=== PATIENT | female | born 1945 | race Caucasian/White ===

== ENCOUNTER 2016-05-27 14:12 | Inpatient (IN) | payer OTHER ==
[~2016-05-27] VITALS: Ht 160 cm; Wt 93.4 kg
[~2016-05-27 14:12] MED LIST: ALBUTEROL SULF8.5 GM IH; ALDACTONE25 MG PO; ALPRAZOLAM0.25 M2 PO; ALPRAZOLAM0.5 MG PO; ASPIR 8181 M1 PO; ASPIRIN81 M2 PO; ATORVASTATIN CA20 MG PO; Aldactone PO; CARDIZEM CD180 MG PO; CYCLOBENZAPRINE10 M1 PO; Colace PO; DAILY VITE1 EAC1 PO; DESYREL100 MG PO; DILTIAZEM 24HR180 MG PO; DOXYCYCLINE HY100 MG PO; DURAGESIC100 MCG TD; Dulcolax PO; Duragesic TD; EFFEXOR XR150 MG PO; EFFEXOR75 MG PO; Effexor PO; GABAPENTIN600 MG PO; GEMFIBROZIL600 MG PO; HUMALOG100 UNIT/2 SC; HYCODAN SYRUP480 ML PO; INDERAL80 MG PO; IRON325 M1 PO; IRON325 MG PO; LANTUS 10100 UNITS/ SC; LANTUS 3 M100 UNITS/ SC; LANTUS 3 M100 UNITS1 SC; LANTUS100 UNIT/1 IJ; LEVAQUIN500 MG PO; LEVETIRACETAM500 MG PO; LEVOFLOXACIN750 MG PO; LO-DOSE ASPIRIN81 M2 PO; LOPID600 MG PO; LOTRISONE15 GM TP; Lopid PO; MEDROL DOSEPAK4 MG PO; MELATONIN10 M1 PO; MIRALAX17 GM PO; NEURONTIN600 MG PO; NOVOLOG PE100 UNITS/ SC; NOVOLOG100 UNIT/1 SC; Neurontin PO; OXYCODONE HCL5 MG PO; PERCOCET 5/31 TABLET PO; PREDNISONE10 MG PO; PREDNISONE20 MG PO; PRILOSEC20 MG PO; PROAIR HFA8.5 GM IH; PROTONIX40 MG PO; PROVENTIL,2.5 MG/3 M IH; PriLOSEC PO; ROBITUSSIN AC,T10 ML PO; SENNA PLUS TAB1 EACH PO; SPIRIVA1 INHALATI IH; SPIRONOLACTONE25 MG PO; TESSALON PERLE100 MG PO; THERAGRAN1 TABLET PO; TRAMADOL HCL50 MG PO; TYLENOL EXTRA500 MG PO; Tylenol Regular Stre PO; VENLAFAXINE HC150 M1 PO; VITAMIN D1000 UNIT PO; VITAMIN D31000 UNI2 PO; WELLBUTRIN SR200 MG PO; XANAX0.25 MG PO; XANAX0.5 MG PO; XARELTO10 MG PO; [UNRECOGNIZED DRUG - OTHER] TP
[2016-05-27] MEDS ORDERED: HEPARIN SO5000 UNITS SC (16:02)
[2016-05-27] MEDS ORDERED: DEXTROSE 50%50 ML IV (16:03)
[2016-05-27] MEDS ORDERED: NOVOLOG PE100 UNITS/ SC (16:03)
[2016-05-27] MEDS ORDERED: GLUCAGEN1 MG IM (16:04)
[2016-05-27] MEDS ORDERED: ZOFRAN4 MG PO (16:05)
[2016-05-27] MEDS ORDERED: OXYCODONE HCL5 MG PO (16:08)
[2016-05-27 16:19] LABS: POINT-OF-CARE METER ID UU13113720
[2016-05-27 16:45] LABS: HEMATOCRIT 38.6 % (36.0-46.0); MCH 30.3 PG (29.0-34.0); MCHC 32.4 G/DL (30.0-36.0); MCV 93.7 FL (83-99); MEAN PLAT.VOLUME 10.1 uM^3 (9.5-12.4); PLATELET COUNT 189 K/uL (156-360); RBC DIS.WIDTH-SD 50.8 % (39-53); RED BLOOD COUNT 4.12 M/uL (3.80-5.20); WHITE BLOOD COUNT 6.6 K/uL (4.1-10.2)
[2016-05-27 17:02] LABS: ALKALINE PHOSPHATASE 127 IU/L (3-129); ANION GAP 8 MEQ/L (2-14); CHLORIDE 101 MEQ/L (99-109); GFR ESTIMATE (CALCULATED) 58 mL/min/; GLUCOSE 203 mg/dL (70-99); POTASSIUM 4.1 MEQ/L (3.7-5.4); SAMPLE HEMOLYSIS CHECK 0; SAMPLE ICTERIC CHECK 0; SAMPLE LIPEMIA CHECK 0; SODIUM 139 MEQ/L (136-147); TOTAL BILIRUBIN 0.6 MG/DL (0.0-1.0); UREA NITROGEN (BUN) 13 mg/dL (9-23)
[2016-05-27 21:45] LABS: POINT-OF-CARE METER ID UU13113720
[2016-05-27 23:25] VITALS: BP 162/70
[2016-05-28 06:06] VITALS: BP 132/62
[2016-05-28 06:46] LABS: POINT-OF-CARE METER ID UU14174215; POINT-OF-CARE USER ID ENVGAF
[2016-05-28 11:17] LABS: POINT-OF-CARE METER ID UU14174215; POINT-OF-CARE USER ID ENVGAF
[2016-05-28 14:48] VITALS: BP 127/62
[2016-05-28 16:43] LABS: POINT-OF-CARE METER ID UU14174215
[2016-05-28 20:57] LABS: POINT-OF-CARE METER ID UU14174215
[2016-05-29 05:49] VITALS: BP 125/60
[2016-05-29 07:14] LABS: POINT-OF-CARE METER ID UU14174215; POINT-OF-CARE USER ID ENVGAF
[2016-05-29 11:33] LABS: POINT-OF-CARE METER ID UU14174215; POINT-OF-CARE USER ID ENVGAF
[2016-05-29] MEDS ORDERED: INDERAL LA80 MG PO (14:54)
[2016-05-29 15:56] VITALS: BP 137/65
[2016-05-29 16:36] LABS: POINT-OF-CARE METER ID UU13113720
[2016-05-29 21:34] LABS: POINT-OF-CARE METER ID UU13113720; POINT-OF-CARE USER ID 610211320
[2016-05-30 05:40] VITALS: BP 134/73
[2016-05-30 07:21] LABS: POINT-OF-CARE METER ID UU14174215; POINT-OF-CARE USER ID AHSSSJB31
[2016-05-30 12:18] LABS: POINT-OF-CARE METER ID UU14174215; POINT-OF-CARE USER ID AHSSSJB31
[2016-05-30 15:28] VITALS: BP 124/60
[2016-05-30 16:17] LABS: POINT-OF-CARE METER ID UU13113720
[2016-05-30 21:14] LABS: POINT-OF-CARE METER ID UU13113720
[2016-05-31 06:08] VITALS: BP 155/75
[2016-05-31 07:20] LABS: POINT-OF-CARE METER ID UU14174215; POINT-OF-CARE USER ID AHSSSJB31
[2016-05-31 12:15] LABS: POINT-OF-CARE METER ID UU14174215
[2016-05-31 15:47] VITALS: BP 126/70
[2016-05-31 16:13] LABS: POINT-OF-CARE METER ID UU14174215
[2016-05-31 21:48] LABS: POINT-OF-CARE METER ID UU13113720
[2016-06-01 05:00] VITALS: BP 122/60
[2016-06-01 07:21] LABS: POINT-OF-CARE METER ID UU13113720; POINT-OF-CARE USER ID AHSSSJB31
[2016-06-01 11:57] LABS: POINT-OF-CARE METER ID UU13113720; POINT-OF-CARE USER ID AHSSSJB31
[2016-06-01 15:31] LABS: POINT-OF-CARE METER ID UU14174215
[2016-06-01 15:32] VITALS: BP 121/64
[2016-06-01 21:24] LABS: POINT-OF-CARE METER ID UU14174215
[2016-06-02 05:39] VITALS: BP 126/59
[2016-06-02 07:30] LABS: POINT-OF-CARE METER ID UU14174215; POINT-OF-CARE USER ID AHSSSJB31
[2016-06-02 11:57] LABS: POINT-OF-CARE METER ID UU13113720
[2016-06-02 15:18] VITALS: BP 132/60
[2016-06-02 16:20] LABS: POINT-OF-CARE METER ID UU13113720
[2016-06-02 21:14] LABS: POINT-OF-CARE METER ID UU13113720
[2016-06-03 05:41] VITALS: BP 126/59
[2016-06-03 07:25] LABS: POINT-OF-CARE METER ID UU13113720
[2016-06-03 11:47] LABS: POINT-OF-CARE METER ID UU13113720; POINT-OF-CARE USER ID AHSSSJB31
[2016-06-03 15:48] VITALS: BP 130/60
[2016-06-03 16:08] LABS: POINT-OF-CARE METER ID UU13113720
[2016-06-03 21:07] LABS: POINT-OF-CARE METER ID UU13113720
[2016-06-04 04:40] VITALS: BP 167/77
[2016-06-04 05:40] LABS: HEMATOCRIT 38.8 % (36.0-46.0); MCH 29.4 PG (29.0-34.0); MCHC 30.9 G/DL (30.0-36.0); MCV 95.1 FL (83-99); RBC DIS.WIDTH-CV 15.6 % (11.8-14.6); RBC DIS.WIDTH-SD 53.5 % (39-53); RED BLOOD COUNT 4.08 M/uL (3.80-5.20); WHITE BLOOD COUNT 7.8 K/uL (4.1-10.2)
[2016-06-04 06:04] LABS: ANION GAP 8 MEQ/L (2-14); CHLORIDE 99 MEQ/L (99-109); GFR ESTIMATE (CALCULATED) 58 mL/min/; GLUCOSE 204 mg/dL (70-99); POTASSIUM 4.9 MEQ/L (3.7-5.4); SAMPLE HEMOLYSIS CHECK 1; SAMPLE ICTERIC CHECK 0; SAMPLE LIPEMIA CHECK 0; SODIUM 139 MEQ/L (136-147); UREA NITROGEN (BUN) 19 mg/dL (9-23)
[2016-06-04 06:46] LABS: MEAN PLAT.VOLUME 10.1 uM^3 (9.5-12.4)
[2016-06-04 06:48] LABS: PLATELET COUNT 258 K/uL (156-360)
[2016-06-04 07:24] LABS: POINT-OF-CARE METER ID UU13113720; POINT-OF-CARE USER ID AHSSSJB31
[2016-06-04 11:52] LABS: POINT-OF-CARE METER ID UU13113720; POINT-OF-CARE USER ID AHSSSJB31
[2016-06-04 16:06] VITALS: BP 133/61
[2016-06-04 16:08] LABS: POINT-OF-CARE METER ID UU13113720
[2016-06-04 22:12] LABS: POINT-OF-CARE METER ID UU14174215
[2016-06-05 05:20] VITALS: BP 164/72
[2016-06-05 07:43] LABS: POINT-OF-CARE METER ID UU13113720; POINT-OF-CARE USER ID AHSSSJB31
[2016-06-05 11:55] LABS: POINT-OF-CARE METER ID UU13113720; POINT-OF-CARE USER ID AHSSSJB31
[2016-06-05 16:03] VITALS: BP 118/59
[2016-06-05 16:09] LABS: POINT-OF-CARE METER ID UU13113720
[2016-06-05 21:17] LABS: POINT-OF-CARE METER ID UU14174215
[2016-06-06 05:40] VITALS: BP 130/66
[2016-06-06 07:38] LABS: POINT-OF-CARE METER ID UU13113720; POINT-OF-CARE USER ID AHSSSJB31
[2016-06-06 11:50] LABS: POINT-OF-CARE METER ID UU13113720; POINT-OF-CARE USER ID AHSSSJB31
[2016-06-06 15:25] VITALS: BP 135/60
[2016-06-06 16:18] LABS: POINT-OF-CARE METER ID UU14174215
[2016-06-06 21:19] LABS: POINT-OF-CARE METER ID UU13113720
[2016-06-07 05:54] VITALS: BP 130/67
[2016-06-07 07:35] LABS: POINT-OF-CARE METER ID UU13113720
[2016-06-07 11:22] LABS: POINT-OF-CARE METER ID UU14174215
[2016-06-07 15:47] VITALS: BP 125/56
[2016-06-07 16:43] LABS: POINT-OF-CARE METER ID UU13113720
[2016-06-07 21:29] LABS: POINT-OF-CARE METER ID UU13113720
[2016-06-08 05:43] VITALS: BP 146/77
[2016-06-08 07:54] LABS: POINT-OF-CARE METER ID UU13113720
[2016-06-08 12:05] LABS: POINT-OF-CARE METER ID UU13113720
[2016-06-08 16:11] LABS: POINT-OF-CARE METER ID UU13113720
[2016-06-08 21:16] LABS: POINT-OF-CARE METER ID UU13113720
[2016-06-09 05:31] VITALS: BP 130/62
[2016-06-09 07:51] LABS: POINT-OF-CARE METER ID UU13113720; POINT-OF-CARE USER ID AHSSSJB31
[2016-06-09 11:37] LABS: POINT-OF-CARE METER ID UU13113720; POINT-OF-CARE USER ID AHSSSJB31
[2016-06-09 15:50] VITALS: BP 108/55
[2016-06-09 16:49] LABS: POINT-OF-CARE METER ID UU13113720
[2016-06-09 21:41] LABS: POINT-OF-CARE METER ID UU13113720
[2016-06-10 05:49] LABS: HEMATOCRIT 41.3 % (36.0-46.0); MCH 30.2 PG (29.0-34.0); MCHC 31.7 G/DL (30.0-36.0); MCV 95.2 FL (83-99); MEAN PLAT.VOLUME 10.6 uM^3 (9.5-12.4); PLATELET COUNT 326 K/uL (156-360); RBC DIS.WIDTH-CV 15.7 % (11.8-14.6); RBC DIS.WIDTH-SD 54.7 % (39-53); RED BLOOD COUNT 4.34 M/uL (3.80-5.20); WHITE BLOOD COUNT 9.1 K/uL (4.1-10.2)
[2016-06-10 06:05] VITALS: BP 95/50
[2016-06-10 06:19] LABS: ALKALINE PHOSPHATASE 179 IU/L (3-129); ANION GAP 11 MEQ/L (2-14); CHLORIDE 100 MEQ/L (99-109); GFR ESTIMATE (CALCULATED) 58 mL/min/; GLUCOSE 196 mg/dL (70-99); POTASSIUM 4.7 MEQ/L (3.7-5.4); SAMPLE HEMOLYSIS CHECK 0; SAMPLE ICTERIC CHECK 0; SAMPLE LIPEMIA CHECK 0; SODIUM 138 MEQ/L (136-147); TOTAL BILIRUBIN 0.6 MG/DL (0.0-1.0); UREA NITROGEN (BUN) 20 mg/dL (9-23)
[2016-06-10 07:10] LABS: POINT-OF-CARE METER ID UU13113712; POINT-OF-CARE USER ID AHSSSJB31
[2016-06-10 08:13] VITALS: BP 166/76
[2016-06-10 11:29] LABS: POINT-OF-CARE METER ID UU13113712; POINT-OF-CARE USER ID AHSSSJB31
[2016-06-10 14:11] LABS: INFLUENZA A VIRAL ANTIGEN NEGATIVE; INFLUENZA B VIRAL ANTIGEN NEGATIVE
[2016-06-10 16:01] VITALS: BP 133/61
[2016-06-10 16:21] LABS: POINT-OF-CARE METER ID UU13113712
[2016-06-10 21:23] LABS: POINT-OF-CARE METER ID UU13113720
[2016-06-11 04:46] VITALS: BP 135/62
[2016-06-11 06:54] LABS: POINT-OF-CARE METER ID UU13113720
[2016-06-11 11:56] LABS: POINT-OF-CARE METER ID UU13113720
[2016-06-11 15:16] VITALS: BP 171/86
[2016-06-11 16:19] LABS: POINT-OF-CARE METER ID UU13113712
[2016-06-11 20:58] LABS: POINT-OF-CARE METER ID UU13113720
[2016-06-12 04:59] LABS: MCH 29.9 PG (29.0-34.0); MCHC 31.5 G/DL (30.0-36.0); MCV 94.9 FL (83-99); MEAN PLAT.VOLUME 9.8 uM^3 (9.5-12.4); PLATELET COUNT 282 K/uL (156-360); RBC DIS.WIDTH-CV 15.5 % (11.8-14.6); RBC DIS.WIDTH-SD 51.2 % (39-53); RED BLOOD COUNT 4.32 M/uL (3.80-5.20); WHITE BLOOD COUNT 8.8 K/uL (4.1-10.2)
[2016-06-12 05:04] LABS: CHLORIDE 100 mEq/L (99-109); POTASSIUM 4.5 mEq/L (3.7-5.4); SODIUM 138 mEq/L (136-147)
[2016-06-12 05:07] LABS: GLUCOSE 232 mg/dL (70-99)
[2016-06-12 05:08] LABS: ANION GAP 9 MEQ/L (2-14)
[2016-06-12 05:09] LABS: TOTAL BILIRUBIN 0.5 mg/dL (0.0-1.0)
[2016-06-12 05:10] LABS: ALKALINE PHOSPHATASE 193 IU/L (3-129); GFR ESTIMATE (CALCULATED) 52 mL/min/
[2016-06-12 05:11] LABS: UREA NITROGEN (BUN) 20 mg/dL (9-23)
[2016-06-12 05:58] VITALS: BP 125/58
[2016-06-12 07:20] LABS: POINT-OF-CARE METER ID UU13113712; POINT-OF-CARE USER ID ENVGAF
[2016-06-12 11:30] LABS: POINT-OF-CARE METER ID UU13113720
[2016-06-12 15:30] VITALS: BP 118/63
[2016-06-12 15:31] VITALS: BP 131/62
[2016-06-12 16:24] LABS: POINT-OF-CARE METER ID UU13113712
[2016-06-12 21:02] LABS: POINT-OF-CARE METER ID UU13113720
[2016-06-13 04:37] VITALS: BP 106/59
[2016-06-13 07:30] LABS: POINT-OF-CARE METER ID UU13113712
[2016-06-13 12:00] LABS: POINT-OF-CARE METER ID UU13113720
[2016-06-13 15:49] VITALS: BP 139/63
[2016-06-13 16:34] LABS: POINT-OF-CARE METER ID UU13113720
[2016-06-13 21:12] LABS: POINT-OF-CARE METER ID UU13113720; POINT-OF-CARE USER ID 610211320
[2016-06-14 05:46] VITALS: BP 132/68
[2016-06-14 07:28] LABS: POINT-OF-CARE METER ID UU13113720
[2016-06-14 12:03] LABS: POINT-OF-CARE METER ID UU13113720
[2016-06-14] MEDS ORDERED: NOVOLOG PE100 UNITS/ SC (14:26)
[2016-06-14] MEDS ORDERED: PROAIR HFA8.5 GM IH (14:26)
[2016-06-14] MEDS ORDERED: DOCUSATE SODIU100 MG PO (14:26)
[2016-06-14] MEDS ORDERED: MIRALAX17 GM PO (14:26)
[2016-06-14] MEDS ORDERED: ACETAMINOPHEN-1 EAC1 PO (14:26)
[2016-06-14] MEDS ORDERED: PROTONIX40 MG PO (14:26)
[2016-06-14] MEDS ORDERED: SPIRIVA1 INHALATI IH (14:26)
[2016-06-14] MEDS ORDERED: LOPRESSOR50 MG PO (14:26)
[2016-06-14] MEDS ORDERED: VITAMIN D31000 UNI2 PO (14:26)
[2016-06-14] MEDS ORDERED: BENZONATATE100 MG PO (14:26)
[2016-06-14] MEDS ORDERED: ADVAIR HFA120 INHAL1 IH (14:26)
[2016-06-14] MEDS ORDERED: DUONEB 2.5-0.5 M3 ML AEROSOL (14:26)
[2016-06-14] MEDS ORDERED: DILTIAZEM 24HR180 MG PO (14:26)
[2016-06-14] MEDS ORDERED: SENNA PLUS TAB1 EACH PO (14:26)
[2016-06-14] MEDS ORDERED: LATANOPROST2.5 ML BOTH EYES (14:26)
[2016-06-14] MEDS ORDERED: SPIRONOLACTONE25 MG PO (14:26)
[2016-06-14] MEDS ORDERED: LANTUS 10100 UNITS/ SC (14:26)
[2016-06-14 15:00] VITALS: BP 148/65
== END 2016-06-14 18:07 | disposition home health service (06) | DRG 945 ==
LOC: 3WEST 14:12
PROVIDERS: Physical Medicine & Rehabilitation Pain Medicine; Psychiatry & Neurology Neurology
PROC: F07M0ZZ Range of Motion and Joint Mobility Treatment of Musculoskeletal System - Whole Body (ICD-10-PCS; principal; 2016-05-27)
PROC: [UNRECOGNIZED PROCEDURE] (2016-06-06)
DX: R53.1 Weakness (principal); J98.11 Atelectasis; R04.2 Hemoptysis; S52.532D Colles' fracture of left radius, subsequent encounter for closed fracture with routine healing; G62.9 Polyneuropathy, unspecified; J44.9 Chronic obstructive pulmonary disease, unspecified; E11.65 Type 2 diabetes mellitus with hyperglycemia; G72.89 Other specified myopathies; I10 Essential (primary) hypertension; E78.5 Hyperlipidemia, unspecified; E66.01 Morbid (severe) obesity due to excess calories; G89.29 Other chronic pain; G47.00 Insomnia, unspecified; Z79.4 Long term (current) use of insulin; F41.9 Anxiety disorder, unspecified; F32.9 Major depressive disorder, single episode, unspecified; H40.9 Unspecified glaucoma; Z91.14 Patient's other noncompliance with medication regimen; Z90.49 Acquired absence of other specified parts of digestive tract; Z98.1 Arthrodesis status; Z87.891 Personal history of nicotine dependence
CPT/HCPCS: 70450; 71010; 71250; 73110; 80048; 80053; 82948; 85025; 85027; 87502; 94640; 94640 76; 97110 GO; 97530 GP; 99202; 99281; 99285; C1894; J1644; J1815; J3010; J7030; J7512

== ENCOUNTER 2016-09-27 02:59 | Emergency (ER) | payer OTHER ==
[~2016-09-27] VITALS: Ht 160 cm; Wt 94.2 kg
[~2016-09-27 02:59] MED LIST changes: +ACETAMINOPHEN-1 EAC1 PO; +ADVAIR HFA120 INHAL1 IH; +BENZONATATE100 MG PO; +DEXTROSE 50%50 ML IV; +DOCUSATE SODIU100 MG PO; +DUONEB 2.5-0.5 M3 ML AEROSOL; +GLUCAGEN1 MG IM; +HEPARIN SO5000 UNITS SC; +INDERAL LA80 MG PO; +LATANOPROST2.5 ML BOTH EYES; +LOPRESSOR50 MG PO; +ZOFRAN4 MG PO
[2016-09-27 04:26] LABS: HEMATOCRIT 44.3 % (36.0-46.0); MCH 28.8 PG (29.0-34.0); MCHC 31.6 G/DL (30.0-36.0); MCV 91.2 FL (83-99); PLATELET COUNT 232 K/uL (156-360); RBC DIS.WIDTH-CV 14.1 % (11.8-14.6); RBC DIS.WIDTH-SD 47.6 % (39-53); RED BLOOD COUNT 4.86 M/uL (3.80-5.20); WHITE BLOOD COUNT 8.5 K/uL (4.1-10.2)
[2016-09-27] MEDS ORDERED: VALIUM2 MG PO (04:32)
[2016-09-27 04:35] LABS: CHLORIDE 105 mEq/L (99-109); POTASSIUM 4.5 mEq/L (3.7-5.4); SODIUM 141 mEq/L (136-147)
[2016-09-27 04:37] LABS: GLUCOSE 156 mg/dL (70-99)
[2016-09-27 04:38] LABS: ANION GAP 11 MEQ/L (2-14)
[2016-09-27 04:41] LABS: GFR ESTIMATE (CALCULATED) 52 mL/min/
[2016-09-27 04:42] LABS: UREA NITROGEN (BUN) 19 mg/dL (9-23)
[2016-09-27 04:53] VITALS: BP 135/53
== END 2016-09-27 04:55 | disposition home or self-care (01) ==
LOC: EME 02:59
PROVIDERS: Emergency Medicine
DX: M62.830 Muscle spasm of back (principal); M51.36 Other intervertebral disc degeneration, lumbar region; G89.29 Other chronic pain; I10 Essential (primary) hypertension; E11.9 Type 2 diabetes mellitus without complications; J44.9 Chronic obstructive pulmonary disease, unspecified; E78.5 Hyperlipidemia, unspecified; Z98.890 Other specified postprocedural states; Z79.4 Long term (current) use of insulin; Z87.891 Personal history of nicotine dependence; Z98.1 Arthrodesis status
CPT/HCPCS: 72131; 74176; 80048; 81003; 85027; 99281; 99285; J2270; J2405; J3360

== ENCOUNTER 2017-12-13 12:57 | Observation (INO) | payer OTHER ==
[~2017-12-13] VITALS: Ht 160 cm; Wt 90.0 kg
[~2017-12-13 12:57] MED LIST changes: +VALIUM2 MG PO
[2017-12-13 14:08] LABS: CHLORIDE 103 mEq/L (99-109); SODIUM 138 mEq/L (136-147)
[2017-12-13 14:10] LABS: GLUCOSE 124 mg/dL (70-99)
[2017-12-13 14:13] LABS: CREATININE 1.6 mg/dL (0.6-1.3); GFR ESTIMATE (CALCULATED) 34 mL/min/
[2017-12-13 14:14] LABS: UREA NITROGEN (BUN) 24 mg/dL (9-23)
[2017-12-13 14:20] LABS: TROP-I INTERPRETATION NEGATIVE; TROPONIN-I < 0.01 ng/mL (0.0-0.30)
[2017-12-13 14:27] LABS: HEMATOCRIT 38.2 % (36.0-46.0); HEMOGLOBIN 12.8 G/DL (11.9-15.5); MCH 32.3 PG (29.0-34.0); MCHC 33.5 G/DL (30.0-36.0); MCV 96.5 FL (83-99); PLATELET COUNT 216 K/uL (156-360); RBC DIS.WIDTH-CV 13.5 % (11.8-14.6); RBC DIS.WIDTH-SD 48.4 % (39-53); RED BLOOD COUNT 3.96 M/uL (3.80-5.20); WHITE BLOOD COUNT 10.1 K/uL (4.1-10.2)
[2017-12-13 14:29] LABS: POTASSIUM 6.3 mEq/L (3.7-5.4)
[2017-12-13 16:46] LABS: CHLORIDE 104 mEq/L (99-109); POTASSIUM 5.1 mEq/L (3.7-5.4); SODIUM 140 mEq/L (136-147)
[2017-12-13 16:47] LABS: GLUCOSE 96 mg/dL (70-99)
[2017-12-13 16:51] LABS: CREATININE 1.5 mg/dL (0.6-1.3); GFR ESTIMATE (CALCULATED) 36 mL/min/
[2017-12-13 16:52] LABS: UREA NITROGEN (BUN) 24 mg/dL (9-23)
[2017-12-13] MEDS ORDERED: ATIVAN0.5 MG PO ×2 (18:19→22:33)
[2017-12-13] MEDS ORDERED: PANTOPRAZOLE SO20 MG PO (18:20)
[2017-12-13] MEDS ORDERED: VENLAFAXINE HC150 M1 PO ×2 (18:20→22:17)
[2017-12-13] MEDS ORDERED: MYSOLINE50 MG PO (18:21)
[2017-12-13] MEDS ORDERED: LO-DOSE ASPIRIN81 M2 PO (18:22)
[2017-12-13 19:52] LABS: BASOPHIL (%) 0.4 % (0-1); EOSINOPHIL (%) 1.5 % (0-5); EOSINOPHIL COUNT 0.1 K/uL (0-0.3); HEMATOCRIT 36.8 % (36.0-46.0); HEMOGLOBIN 11.7 G/DL (11.9-15.5); IMMATURE GRANULOCYTE (%) 0.3 % (0.0-0.7); LYMPHOCYTE (%) 32.9 % (15-42); LYMPHOCYTE COUNT 3.1 K/uL (1.0-2.8); MCH 31.3 PG (29.0-34.0); MCHC 31.8 G/DL (30.0-36.0); MCV 98.4 FL (83-99); MONOCYTE (%) 8.8 % (3-12); MONOCYTE COUNT 0.8 K/uL (0-0.8); NEUTROPHIL (%) 56.1 % (45-76); NEUTROPHIL COUNT 5.3 K/uL (1.8-6.4); NRBC (%) 0.2 /100 WBC (0-0); PLATELET COUNT 185 K/uL (156-360); RBC DIS.WIDTH-CV 13.5 % (11.8-14.6); RED BLOOD COUNT 3.74 M/uL (3.80-5.20); WHITE BLOOD COUNT 9.5 K/uL (4.1-10.2)
[2017-12-13 20:15] VITALS: BP 135/60
[2017-12-13] MEDS ORDERED: FEOSOL325 MG PO (22:18)
[2017-12-13] MEDS ORDERED: ADULT LOW DOSE81 M1 PO (22:19)
[2017-12-13] MEDS ORDERED: MELATONIN10 M1 PO (22:20)
[2017-12-13] MEDS ORDERED: LOPRESSOR50 MG PO (22:22)
[2017-12-13] MEDS ORDERED: MS CONTIN,ORAMO30 MG PO (22:28)
[2017-12-13] MEDS ORDERED: LORAZEPAM0.5 MG PO (22:31)
[2017-12-13 23:33] LABS: APPEARANCE CLEAR ((CLEAR)); BILIRUBIN NEGATIVE; BLOOD NEGATIVE; COLOR YELLOW ((YELLOW)); GLUCOSE (STRIP) NEGATIVE; KETONES NEGATIVE; LEUKOCYTES NEGATIVE; NITRITE NEGATIVE; PROTEIN (STRIP) NEGATIVE; SPECIFIC GRAVITY 1.013 (1.000-1.030); UCUL ADDED? NO
[2017-12-13 23:52] VITALS: BP 126/58
[2017-12-14] MEDS ORDERED: XANAX0.25 MG PO (01:14)
[2017-12-14] MEDS ORDERED: ONCE DAILY1 EACH PO (01:15)
[2017-12-14] MEDS ORDERED: OXAYDO5 MG PO (01:17)
[2017-12-14] MEDS ORDERED: TESSALON PERLE100 MG PO (01:19)
[2017-12-14] MEDS ORDERED: ALDACTONE25 MG PO (01:20)
[2017-12-14] MEDS ORDERED: PROTONIX40 MG PO (01:21)
[2017-12-14] MEDS ORDERED: LANTUS 10100 UNITS/ SC ×2 (01:22→01:23)
[2017-12-14] MEDS ORDERED: MYSOLINE50 MG PO (01:22)
[2017-12-14] MEDS ORDERED: NOVOLOG PE100 UNITS/ SC (01:25)
[2017-12-14 03:56] VITALS: BP 149/67
[2017-12-14 05:43] LABS: CHLORIDE 106 MEQ/L (99-109); CREATININE 1.1 MG/DL (0.6-1.3); GFR ESTIMATE (CALCULATED) 52 mL/min/; GLUCOSE 107 mg/dL (70-99); SODIUM 141 MEQ/L (136-147); UREA NITROGEN (BUN) 21 mg/dL (9-23)
[2017-12-14 08:19] VITALS: BP 142/63
[2017-12-14 09:35] LABS: ALKALINE PHOSPHATASE 101 IU/L (3-129); ALT (GPT) 20 IU/L (3-49); AST (GOT) 26 IU/L (2-34); DIRECT BILIRUBIN 0.1 mg/dL (0.0-0.3); TOTAL BILIRUBIN 0.6 MG/DL (0.0-1.0); TOTAL PROTEIN 5.7 G/DL (6.4-8.3)
[2017-12-14 12:13] VITALS: BP 143/65
[2017-12-14 14:58] VITALS: BP 187/81
[2017-12-14 19:45] VITALS: BP 143/67
[2017-12-15] VITALS: BP 145/64
[2017-12-15 04:05] VITALS: BP 174/79
[2017-12-15 08:07] VITALS: BP 189/82
== END 2017-12-15 11:25 | disposition home or self-care (01) ==
LOC: EME 12:57 → EDOF 18:36 → 4SOUTH 18:36 → EDOF 18:36 → ENRESERV 18:38 → 4SOUTH 19:54
PROVIDERS: Emergency Medicine; Hospitalist
PROC: B246ZZZ Ultrasonography of Right and Left Heart (ICD-10-PCS; principal; 2017-12-14)
DX: G93.41 Metabolic encephalopathy (principal); I95.1 Orthostatic hypotension; N17.9 Acute kidney failure, unspecified; I35.0 Nonrheumatic aortic (valve) stenosis; F11.20 Opioid dependence, uncomplicated; G89.29 Other chronic pain; I10 Essential (primary) hypertension; E78.5 Hyperlipidemia, unspecified; E04.1 Nontoxic single thyroid nodule; E66.9 Obesity, unspecified; Z68.35 Body mass index [BMI] 35.0-35.9, adult; E11.42 Type 2 diabetes mellitus with diabetic polyneuropathy; J44.9 Chronic obstructive pulmonary disease, unspecified; R09.02 Hypoxemia; E87.5 Hyperkalemia; Z79.4 Long term (current) use of insulin; Z79.82 Long term (current) use of aspirin; R26.89 Other abnormalities of gait and mobility; Z90.49 Acquired absence of other specified parts of digestive tract; Z90.710 Acquired absence of both cervix and uterus; Z87.891 Personal history of nicotine dependence; Z88.2 Allergy status to sulfonamides; Z88.8 Allergy status to other drugs, medicaments and biological substances
CPT/HCPCS: 70450; 71046; 80048; 80048 91; 80076; 81003; 82140; 82607; 82948; 84443; 84484; 85025; 85027; 93005; 93306; 99281; 99285; G0378; G8978 GP CI; G8979 GP CH; G8980 GP CI; G8987 GO CJ; G8988 GO CH; G8989 CJ; J1644; J7030